=== PATIENT | female | born 1995 | race Caucasian/White ===

== ENCOUNTER → 2023-10-13 13:25 | Outpatient (REF) | payer BC, SELFPAY | LOC: HWRAD 13:25 | PROVIDERS: ATTENDING PHYSICIAN Nurse Practitioner Obstetrics & Gynecology; FAMILY PHYSICIAN Nurse Practitioner Family | DX: R10.2 Pelvic and perineal pain (principal) | CPT/HCPCS: 76830; 76856 ==

== ENCOUNTER → 2024-07-09 08:30 | Outpatient (REF) | payer BC, SELFPAY | LOC: HWRAD 08:30 | PROVIDERS: ATTENDING PHYSICIAN Nurse Practitioner Obstetrics & Gynecology; FAMILY PHYSICIAN Nurse Practitioner Family | DX: R10.2 Pelvic and perineal pain (principal) | CPT/HCPCS: 76830; 76856 ==